=== PATIENT | male | born 1965 | race Caucasian/White ===

== ENCOUNTER 2021-05-27 07:31 | Day surgery (SDC) | payer MEDICAID, SELFPAY ==
[~2021-05-27] VITALS: Ht 165.1 cm; Wt 81.6 kg
[2021-05-27] MEDS ORDERED: fentaNYL CITRATE/PF 100 MCG/2 ML AMP ONE (08:12)
[2021-05-27] MEDS ORDERED: SIMETHICONE 40 MG/0.6 ML ML ONE (08:12)
[2021-05-27] MEDS ORDERED: MIDAZOLAM HCL 5 MG/5 ML VIAL ONE (08:13)
[2021-05-27 09:37] VITALS: BP_SYST 134
== END 2021-05-27 08:52 | disposition home or self-care (01) ==
LOC: SDS 07:31 → SMU 07:32 → SDS 08:52
PROVIDERS: ATTEND Internal Medicine
DX: Z01.818 Encounter for other preprocedural examination (principal); Z20.822 Contact with and (suspected) exposure to COVID-19
CPT/HCPCS: J2250; J3010; U0003

== ENCOUNTER 2021-06-03 08:18 | Day surgery (SDC) | payer MEDICAID, SELFPAY ==
[~2021-06-03] VITALS: Ht 165.1 cm; Wt 81.6 kg
[2021-06-03] MEDS ORDERED: fentaNYL CITRATE/PF 100 MCG/2 ML AMP ONE (09:20)
[2021-06-03] MEDS ORDERED: SIMETHICONE 40 MG/0.6 ML ML ONE (09:20)
[2021-06-03] MEDS ORDERED: MIDAZOLAM HCL 5 MG/5 ML VIAL ONE (09:20)
[2021-06-03 12:21] VITALS: BP_SYST 101
== END 2021-06-03 11:30 | disposition home or self-care (01) ==
LOC: SDS 08:18 → SMU 08:19 → SDS 11:30
PROVIDERS: ATTEND Internal Medicine
DX: Z12.11 Encounter for screening for malignant neoplasm of colon (principal); D12.3 Benign neoplasm of transverse colon; K64.8 Other hemorrhoids; Z79.899 Other long term (current) drug therapy; Z20.822 Contact with and (suspected) exposure to COVID-19
CPT/HCPCS: 45380; 88305; 99152; 99153; G0378; J2250; J3010; U0003; 45385

== ENCOUNTER 2021-10-21 06:55 | Day surgery (SDC) | payer MEDICAID, SELFPAY ==
[~2021-10-21] VITALS: Ht 165.1 cm; Wt 83.5 kg
[2021-10-21] MEDS ORDERED: fentaNYL CITRATE/PF 100 MCG/2 ML AMP ONE (07:16)
[2021-10-21] MEDS ORDERED: MIDAZOLAM HCL 5 MG/5 ML VIAL ONE (07:16)
[2021-10-21 16:04] VITALS: BP_SYST 114
== END 2021-10-21 10:10 | disposition home or self-care (01) ==
LOC: SDS 06:55 → SMU 06:56 → SDS 10:10
PROVIDERS: ATTEND Internal Medicine
DX: R10.13 Epigastric pain (principal); K29.50 Unspecified chronic gastritis without bleeding; K76.89 Other specified diseases of liver; K80.20 Calculus of gallbladder without cholecystitis without obstruction; Z79.899 Other long term (current) drug therapy; Z20.822 Contact with and (suspected) exposure to COVID-19
CPT/HCPCS: 36415; 43239; 87081; 87426; 88305; 88312; 88313; 96365; G0378; J2250; J3010; U0003